=== PATIENT | female | born 1990 | race Caucasian/White ===

== ENCOUNTER 2017-12-05 06:04 | Day surgery (SDC) | payer OTHER ==
[2017-12-05] VITALS (11 sets, daily range): BP systolic 104–122; BP diastolic 52–65
[~2017-12-05] VITALS: Ht 157.5 cm; Wt 80.7 kg
[~2017-12-05 06:04] MED LIST: NORCO 10-325 T1 EACH ORAL; ceFAZolin 1gm in D5W 55ml IVPB SCH; celeBREX 200mg Cap **SURGERY PATIENTS ONLY ORAL SCH; oxyCONTIN 20mg tab ORAL SCH
--- NOTE | 2017-12-05 07:46 | Pre-Procedure Note/Attestation ---
Pre-Procedure Note/Attestation Complete Prior to Procedure Planned Procedure: left Procedure Narrative: arthroscopy, possible acl recontruction, possible menisectomy Indications for Procedure Pre-Operative Diagnosis: left knee acl tear Attestation I attest that I discussed the nature of the procedure; its benefits; risks and complications; and alternatives (and the risks and benefits of such alternatives ), prior to the procedure, with the patient (or the patient's legal loan representative). I attest that, if there was a reasonable possibility of needing a blood transfusion, the patient (or the patient's legal loan representative) was given the [facility] standardized written summary, pursuant to the [place] Blood Safety Act ([place] Health and Safety Code # 1645, as amended). I attest that I re-evaluated the patient just prior to the surgery and that there has been no change in the patient's H&P, except as documented below: DANIEL GIL Dec 05, 2017 07:46
--- NOTE | 2017-12-05 07:47 | Operative Note - PDOC ---
Operative Note Operative Note Pre-op Diagnosis: left knee acl tear Procedure: see op report Post-op Diagnosis: same as pre-op plus Operative Findings: consistent w/pre-op dx studies Anesthesia: regional Specimen: none Complications: none Condition: stable Estimated Blood Loss: none Implant(s) used?: Yes DANIEL GIL Dec 05, 2017 07:47
[2017-12-05] MEDS ORDERED: EPINEPHrine 1mg/1ml Amp ONE ×3 (10:07→11:23)
[2017-12-05] MEDS ORDERED: Lidocaine 1% 10mg/ml/Epi 0.005mg/ml 30ml vial INJ ONE (10:07)
[2017-12-05] MEDS ORDERED: Bupivacaine 0.25% Inj 30ml INJ ONE ×2 (10:07→10:16)
[2017-12-05] MEDS ORDERED: Duramorph PF 5mg/10ml amp ONE (10:15)
[2017-12-05] MEDS ORDERED: Kenalog-40 1ml Vial ONE (10:16)
[2017-12-05] MEDS ORDERED: Ketorolac 30mg Inj ONE (10:16)
[2017-12-05] MEDS ORDERED: LR 1000ml 1,000 ML IVLG SCH (10:53)
--- NOTE | 2017-12-05 10:54 | Anethesia Preoperative Eval ---
Anesthesia Pre-op PMH/ROS General Date of Evaluation: Dec 05, 2017 Time of Evaluation: 13:23 Anesthesiologist: Yasmany ASA Score: ASA 2 Mallampati Score Class I : Soft palate, uvula, fauces, pillars visible Class II: Soft palate, uvula, fauces visible Class III: Soft palate, base of uvula visible Class IV: Only hard plate visible Mallampati Classification: Class I Surgeon: Burton Diagnosis: L Knee Pain Surgical Procedure: L Knee ACL Repair Anesthesia History: none Family History: no anesthesia problems Allergies: Coded Allergies: AMOXICILLIN (Verified Allergy, Intermediate, rash, 12/04/17) CEFADROXIL (Verified Allergy, Intermediate, rash, 12/04/17) CLAVULANIC ACID (Verified Allergy, Intermediate, rash, 12/04/17) OXYBUTYNIN (Verified Allergy, Intermediate, hives, 12/04/17) SULFAMETHOXAZOLE (Verified Allergy, Intermediate, hives, 12/04/17) TRIMETHOPRIM (Verified Allergy, Intermediate, hives, 12/04/17) Medications: see eMAR Past Medical History Other: obesity - BMI 34 Anesthesia Pre-op Phys. Exam Physician Exam Last Vital Signs Date Time Temp Pulse Resp B/P (MAP) Pulse Ox O2 Delivery O2 Flow Rate FiO2 12/05/17 09:11 97.2 71 18 104/62 100 Room Air 97.2 Constitutional: NAD Neurologic: CN 2-12 intact Cardiovascular: RRR Respiratory: CTA Gastrointestinal: S/NT/ND Airway Exam Mallampati Score: Class I MO: full ROM: full Teeth: intact Anesthesia Pre-op A/P Labs Urine Test Test 12/05/17 06:15 Urine HCG, Qualitative Negative (NEGATIVE) Risk Assessment & Plan Assessment: ASA 2 Plan: GA, Femoral/Adductor Block, BIS Status Change Before Surgery: No Pre-Antibiotics Dru grams Ancef IV Given Within 1 Hr of Incision: Yes Time Given: 13:31 Chaka Faustin MD Dec 05, 2017 10:54
[2017-12-05] MEDS ORDERED: Acetaminophen (Non formulary) 100 ML IV ONE (11:00)
[2017-12-05] MEDS ORDERED: LORazepam Inj 2mg/ml 1ml IV PRN (11:00)
[2017-12-05] MEDS ORDERED: fentaNYL 100 mcg/2 mL IV PRN (11:00)
[2017-12-05] MEDS ORDERED: Labetalol 5mg/ml 20ml vial IV PRN (11:00)
[2017-12-05] MEDS ORDERED: Ketorolac 30mg Inj IV PRN ×2 (11:00)
[2017-12-05] MEDS ORDERED: HYDROcodone/Acetamin 7.5/325 tab ORAL PRN (11:00)
[2017-12-05] MEDS ORDERED: oxyCODONE HCL/Acetaminophen 5/325mg ORAL PRN (11:00)
[2017-12-05] MEDS ORDERED: Midazolam 2mg/2ml Inj IVP PRN (11:00)
[2017-12-05] MEDS ORDERED: DiphenhydrAMINE 50mg/ml Inj IVP PRN (11:00)
[2017-12-05] MEDS ORDERED: Atropine Inj 1mg/10ml Syr IV PRN (11:00)
[2017-12-05] MEDS ORDERED: Hydromorphone 0.5mg/0.5ml inj IVP PRN (11:00)
[2017-12-05] MEDS ORDERED: Norco 5mg/325mg tab ORAL PRN ×2 (11:00→19:01)
--- NOTE | 2017-12-05 11:16 | Immediate Post-Op Evaluation ---
Immediate Post-Op Evalulation Immediate Post-Op Evalulation Procedure: L Knee Acl Repair Date of Evaluation: Dec 05, 2017 Time of Evaluation: 15:07 IV Fluids: 1600 LR Blood Products: 0 Estimated Blood Loss: 20 Urinary Output: 0 Blood Pressure Systolic: 111 Blood Pressure Diastolic: 44 Pulse Rate: 86 Respiratory Rate: 16 O2 Sat by Pulse Oximetry: 100 Temperature (Fahrenheit): 97.2 Pain Score (1-10): 3 Nausea: No Vomiting: No Complications 0 Patient Status: awake, reacts, patent, extubated, none Hydration Status: adequate Dru Grams Ancef IV Given Within 1 Hr of Incision: Yes Time Given: 13:31 Chaka Faustin MD Dec 05, 2017 11:16
--- NOTE | 2017-12-05 11:17 | 48 Hour Post Anesthesia Eval ---
Post Anesthesia Evaluation Procedure: L Knee Acl Repair Date of Evaluation: Dec 05, 2017 Time of Evaluation: 17:21 Blood Pressure Systolic: 112 0: 67 Pulse Rate: 74 Respiratory Rate: 18 Temperature (Fahrenheit): 97.6 O2 Sat by Pulse Oximetry: 100 Airway: patent Nausea: No Vomiting: No Pain Intensity: 3 Hydration Status: adequate Cardiopulmonary Status: Stable Mental Status/LOC: patient returned to baseline Follow-up Care/Observations: 0 Post-Anesthesia Complications: 0 Follow-up care needed: ready to discharge Chaka Faustin MD Dec 05, 2017 11:17
[2017-12-05] MEDS ORDERED: fentaNYL 100 mcg/2 mL IV ONE (11:24)
[2017-12-05] MEDS ORDERED: Lidocaine 1% MPF 10mg/ml 5ml ONE (11:25)
[2017-12-05] MEDS ORDERED: Dexamethasone 4mg/ml vial ONE (11:25)
[2017-12-05] MEDS ORDERED: Propofol 200mg/20ml IV ONE (11:25)
[2017-12-05] MEDS ORDERED: Sodium Chloride 10ml vial INJ ONE (11:25)
[2017-12-05] MEDS ORDERED: Ropivacaine 5mg/ml Vial 30ml INJ ONE (11:28)
[2017-12-05] MEDS ORDERED: Sterile Water Irrig 1000ml IRRIG ONE (13:30)
[2017-12-05] MEDS ORDERED: NS Irrig 4000ml IRRIG ONE (13:30)
[2017-12-05] MEDS ORDERED: LR 1000ml ONE (13:30)
[2017-12-05] MEDS ORDERED: NS Irrig 1000ml ONE (13:30)
--- NOTE | 2017-12-05 18:45 | Operative Note - Dictated ---
DATE OF OPERATION: 12/05/2017 NOTE: INCOMPLETE DICTATION PREOPERATIVE DIAGNOSIS: Left knee internal derangement secondary to possible anterior cruciate ligament sprain. POSTOPERATIVE DIAGNOSIS: Left knee internal derangement secondary to possible anterior cruciate ligament sprain. PROCEDURE: 1. Left knee diagnostic arthroscopy 2. Synovectomy of the lateral, medial, and patellofemoral compartment. SURGEON: Rod Burton M.D. ANESTHESIA: MAC. INDICATION FOR PROCEDURE: The patient is a pleasant female, who sustained a mechanical fall. She had significant pain and instability in her knee. She had an MRI, which showed some thickening and possible sprain of the ACL. Given that she had instability, it was felt that assessment intraoperatively for the laxity of the ACL would be appropriate so as to rule out any other internal derangement of the knee that could be causing her symptoms. Based on the chronic findings of the ACL was significantly laxed, formal surgery would be unreasonable. Additionally, any meniscal chondral damage would be addressed also at the time of surgery. Risks, limitations, expectations, and complications of procedure were discussed in detail including continued pain, need for future surgery, risk of anesthesia, medical complications, DVT, PE, and mortality risks. All questions were addressed. DESCRIPTION OF PROCEDURE: After informed consent was obtained, the patient was brought to the operative room and the patient was placed under monitored anesthesia control. Tourniquet was applied to the left proximal thigh. Left leg was prepped and draped in a sterile manner. Time-out was performed. The intra-articular injection was injected. Rod Burton M.D. DR: ASHWIN JOB#: [id number] CC: JERRICA
[2017-12-05] MEDS ORDERED: D5 1/2NS 1,000 ML IV SCH (19:01)
[2017-12-05] MEDS ORDERED: Tylenol #3 tab (300mg/30mg) ORAL PRN (19:01)
--- NOTE | 2017-12-06 03:30 | Operative Note - Dictated ---
DATE OF OPERATION: 12/05/2017 NOTE: POOR AUDIO PREOPERATIVE DIAGNOSES: 1. Left knee internal derangement. 2. Left knee anterior cruciate ligament sprain. POSTOPERATIVE DIAGNOSES: 1. Left knee internal derangement. 2. Left knee anterior cruciate ligament sprain. PROCEDURE: 1. Left knee diagnostic arthroscopy. 2. Left knee arthroscopic medial and lateral patellofemoral synovectomy. SURGEON: Rod Burton M.D. ANESTHESIA: MAC with local. INDICATION FOR PROCEDURE: The patient is a pleasant female who had significant pain along the left knee she failed conservative treatment. MRI showed some thickening, possible tearing of the ACL. She exploration with the risks, limitations, expectations, and complications of procedure were discussed in detail. We discussed that based on intraoperative findings, the ACL was laxed and completely torn and formal reconstruction with tibialis anterior allograft would be reasonable. Additionally, any other potential source of her continued symptoms would also be addressed including the meniscus and chondral surfaces. Risks, limitations, expectations, and complications of procedure were discussed in detail. All questions were addressed. DESCRIPTION OF PROCEDURE: Informed consent was obtained. The patient was brought to the operative room. The patient was placed under monitored anesthesia control. Tourniquet was applied to left proximal thigh. Left leg was prepped and draped in a sterile manner. Time-out was performed. A 20 mL Marcaine plain injected into the left knee. Portal sites were injected with 1% lidocaine with epinephrine . The Esmarch was used to exsanguinate the extremity. Inferolateral stab incision was then made. Trocar was introduced into the knee joint. There was hypertrophic synovial tissue in the patellofemoral compartment. No significant chondral damage. Medial compartment was entered and there was no significant chondral or meniscal injury. The intercondylar notch was entered and there was thickening along the ACL consistent with the sprain/tear. Synovectomy of the hypertrophic ligamentum mucosum and soft tissue down to what appeared to be the ACL. The ACL was probed in its entirety and seemed reasonably intact, although there was slight laxity and it was felt that reason. Once the synovectomy in the intercondylar notch and hypertrophic synovial tissue and intercondylar notch was debrided, the knee was taken through range of motion. No impingement of the soft tissue on the ACL with flexion and extension. Lateral compartment was entered and free from the meniscal chondral damage. Once this was done, the camera was placed in the patellofemoral compartment. Synovectomy was completed. Once that was done, the instruments were removed. Portal sites were closed using 3-0 Monocryl sutures. Steri-Strips and a sterile dressing were applied. The patient was awoken and taken to recovery room with stable vital signs. ESTIMATED BLOOD LOSS: None. COMPLICATIONS: None. SPECIMENS: None. IMPLANTS: None. Rod Burton M.D. DR: BHARATI JOB#: [id number] CC:
== END 2017-12-05 16:46 | disposition home or self-care (01) ==
LOC: SUR 06:04
DX: S83.512A Sprain of anterior cruciate ligament of left knee, initial encounter (principal); Z88.8 Allergy status to other drugs, medicaments and biological substances; X58.XXXA Exposure to other specified factors, initial encounter
CPT/HCPCS: 29876; 81025; J0171; J0690; J1100; J2250; J2405; J2704; J2795; J3010; J3490

== ENCOUNTER 2018-10-14 06:44 | Inpatient (IN) | payer OTHER ==
[2018-10-14] VITALS (11 sets, daily range): BP systolic 102–134; BP diastolic 61–85
[~2018-10-14] VITALS: Ht 157.5 cm; Wt 81.6 kg
[~2018-10-14 06:44] MED LIST changes: -ceFAZolin 1gm in D5W 55ml IVPB SCH; -celeBREX 200mg Cap **SURGERY PATIENTS ONLY ORAL SCH; -oxyCONTIN 20mg tab ORAL SCH
[2018-10-14] MEDS ORDERED: Dexamethasone 20mg/5ml IVP ONE (07:00)
[2018-10-14 07:28] LABS: APPEARANCE,URINE CLEAR; BILIRUBIN, URINE NEGATIVE (NEGATIVE); COLOR,URINE PALE YELLOW; GLUCOSE, URINE (UA) NEGATIVE (NEGATIVE); KETONES,URINE NEGATIVE (NEGATIVE); LEUKOCYTE ESTERASE ,URINE 1+ (NEGATIVE); NITRITE,URINE NEGATIVE (NEGATIVE); PH,URINE 6 (4.5-8.0); PROTEIN,URINE NEGATIVE (NEGATIVE); UROBILINOGEN,URINE NORMAL MG/DL (0.0-1.0)
[2018-10-14] MEDS ORDERED: LR 1000ml 1,000 ML IVLG SCH (09:18)
--- NOTE | 2018-10-14 09:22 | Anethesia Preoperative Eval ---
Anesthesia Pre-op PMH/ROS General Date of Evaluation: Oct 14, 2018 Time of Evaluation: 10:41 Anesthesiologist: Roxie ASA Score: ASA 2 Mallampati Score Class I : Soft palate, uvula, fauces, pillars visible Class II: Soft palate, uvula, fauces visible Class III: Soft palate, base of uvula visible Class IV: Only hard plate visible Mallampati Classification: Class I Surgeon: Hipolito Diagnosis: Neck Pain Surgical Procedure: ACDF C5-6, C6-7 Anesthesia History: none Family History: no anesthesia problems Allergies: Coded Allergies: AMOXICILLIN (Verified Allergy, Intermediate, rash, 12/04/17) CEFADROXIL (Verified Allergy, Intermediate, rash, 12/04/17) CLAVULANIC ACID (Verified Allergy, Intermediate, rash, 12/04/17) OXYBUTYNIN (Verified Allergy, Intermediate, 10/14/18) RASH/TACHYCARDIA SULFAMETHOXAZOLE (Verified Allergy, Intermediate, hives, 12/04/17) TRIMETHOPRIM (Verified Allergy, Intermediate, hives, 12/04/17) Medications: see eMAR Patient NPO?: Yes NPO Date: Oct 13, 2018 NPO Time: 2339 Past Medical History Other: obesity - BMI 34 PSxH Narrative: R Knee ACL Repair Anesthesia Pre-op Phys. Exam Physician Exam Last Vital Signs Date Time Temp Pulse Resp B/P (MAP) Pulse Ox O2 Delivery O2 Flow Rate FiO2 10/14/18 07:54 Room Air 10/14/18 07:44 97.9 76 18 102/65 (77) 96 Constitutional: NAD Neurologic: CN 2-12 intact Cardiovascular: RRR Respiratory: CTA Gastrointestinal: S/NT/ND Airway Exam Mallampati Score: Class II MO: full ROM: limited Teeth: intact Anesthesia Pre-op A/P Labs Urine Test Test 10/14/18 07:00 Urine HCG, Qualitative Negative (NEGATIVE) Risk Assessment & Plan Assessment: ASA 2 Plan: GA, SED, GlideScope Go Status Change Before Surgery: No Pre-Antibiotics Dru Grams Ancef IV Given Within 1 Hr of Incision: Yes Time Given: 11:01 Chaka Faustin MD Oct 14, 2018 09:22
--- NOTE | 2018-10-14 09:24 | Immediate Post-Op Evaluation ---
Immediate Post-Op Evalulation Immediate Post-Op Evalulation Procedure: ACDF C5-6, C6-7 Date of Evaluation: Oct 14, 2018 Time of Evaluation: 13:34 IV Fluids: 700 LR Blood Products: 0 Estimated Blood Loss: 50 Urinary Output: 0 Blood Pressure Systolic: 120 Blood Pressure Diastolic: 85 Pulse Rate: 89 Respiratory Rate: 16 O2 Sat by Pulse Oximetry: 100 Temperature (Fahrenheit): 97.1 Pain Score (1-10): 2 Nausea: No Vomiting: No Complications 0 Patient Status: awake, reacts, patent, extubated, none Hydration Status: adequate Dru Grams Ancef IV Given Within 1 Hr of Incision: Yes Time Given: 11:01 Chaka Faustin MD Oct 14, 2018 09:24
[2018-10-14] MEDS ORDERED: Lidocaine 1% Plain 30 ml INJ ONE ×3 (09:29→12:16)
[2018-10-14] MEDS ORDERED: LORazepam Inj 2mg/ml 1ml IV PRN (09:30)
[2018-10-14] MEDS ORDERED: Norco 5mg/325mg tab ORAL PRN (09:30)
[2018-10-14] MEDS ORDERED: HYDROcodone/Acetamin 7.5/325 tab ORAL PRN (09:30)
[2018-10-14] MEDS ORDERED: Acetaminophen (Non formulary) 100 ML IV ONE (09:30)
[2018-10-14] MEDS ORDERED: DiphenhydrAMINE 50mg/ml Inj IVP PRN (09:30)
[2018-10-14] MEDS ORDERED: Metoclopramide 10mg/2ml Inj IVP PRN (09:30)
[2018-10-14] MEDS ORDERED: Hydromorphone 0.5mg/0.5ml inj IVP PRN (09:30)
[2018-10-14] MEDS ORDERED: oxyCODONE HCL/Acetaminophen 5/325mg ORAL PRN (09:30)
[2018-10-14] MEDS ORDERED: Atropine Sulfate 0.4mg/ml inj IVP PRN (09:30)
[2018-10-14] MEDS ORDERED: Ketorolac 30mg Inj IV PRN ×2 (09:30)
[2018-10-14] MEDS ORDERED: Meperidine 50mg/ml Inj(FOR RIGORS ONLY) IVP PRN (09:30)
[2018-10-14] MEDS ORDERED: Midazolam 2mg/2ml Inj IVP PRN (09:30)
[2018-10-14] MEDS ORDERED: fentaNYL 100 mcg/2 mL IV PRN (09:30)
[2018-10-14] MEDS ORDERED: Sodium Chloride 10ml vial INJ ONE (09:36)
[2018-10-14] MEDS ORDERED: Dexamethasone 4mg/ml vial ONE (09:36)
[2018-10-14] MEDS ORDERED: Lidocaine 1% MPF 10mg/ml 5ml ONE (09:36)
[2018-10-14] MEDS ORDERED: fentaNYL 100 mcg/2 mL IV ONE ×3 (09:37→12:45)
[2018-10-14] MEDS ORDERED: Thrombin 5000 units TOPIC ONE (09:48)
[2018-10-14] MEDS ORDERED: Gelfoam Size TOPIC ONE (09:48)
[2018-10-14] MEDS ORDERED: Vancomycin 1gm vial IVPB ONE (09:48)
[2018-10-14] MEDS ORDERED: Bacitracin 50000 Units Vial ONE (09:49)
[2018-10-14] MEDS ORDERED: Bupivacaine 0.5% Inj 30 ml vial INJ ONE (09:49)
--- NOTE | 2018-10-14 10:03 | Pre-Procedure Note/Attestation ---
Pre-Procedure Note/Attestation Complete Prior to Procedure Planned Procedure: not applicable Procedure Narrative: ACDF C5-C6, C6-C7 Anterior Plate Indications for Procedure Pre-Operative Diagnosis: Cervical Trauma HNP radiculopathy, neurologic deficit Attestation I attest that I discussed the nature of the procedure; its benefits; risks and complications; and alternatives (and the risks and benefits of such alternatives ), prior to the procedure, with the patient (or the patient's legal outbound sales representative). I attest that, if there was a reasonable possibility of needing a blood transfusion, the patient (or the patient's legal outbound sales representative) was given the [facility] standardized written summary, pursuant to the [place] Blood Safety Act ([place] Health and Safety Code # 1645, as amended). I attest that I re-evaluated the patient just prior to the surgery and that there has been no change in the patient's H&P, except as documented below: Royal Mcmillan MD Oct 14, 2018 10:03
[2018-10-14] MEDS ORDERED: Zemuron 50mg/5ml Inj IV ONE (10:24)
[2018-10-14] MEDS ORDERED: LR 1000ml ONE (11:00)
[2018-10-14] MEDS ORDERED: Sterile Water For Irrig 2000ml IRRIG ONE (11:00)
[2018-10-14] MEDS ORDERED: Labetalol 5mg/ml 20ml vial IV ONE (11:00)
[2018-10-14] MEDS ORDERED: NS Irrig 1000ml ONE (11:00)
[2018-10-14] MEDS ORDERED: Propofol 1,000mg/ 100ml btl IV ONE (11:00)
[2018-10-14] MEDS ORDERED: Neostigmine 1mg/ml 10ml Inj ONE (12:27)
[2018-10-14] MEDS ORDERED: Glycopyrrolate 0.2mg/ml 1ml Vial ONE (12:27)
[2018-10-14] MEDS ORDERED: ePHEDrine 50mg/ml Inj ONE (12:53)
[2018-10-14] MEDS ORDERED: Chloraseptic Spray 20mL Bottle ORAL PRN ×2 (13:00→16:00)
[2018-10-14] MEDS ORDERED: HYDROcodone/Acetamin 10/325 tab ORAL PRN ×4 (13:00→14:30)
[2018-10-14] MEDS ORDERED: D5 1/2NS 1,000 ML IV SCH (13:11)
--- NOTE | 2018-10-14 13:11 | Brief Operative Note ---
Immediate Post Operative Note Operative Note Pre-op Diagnosis: Cervical Trauma HNP radiculopathy, neurologic deficit Procedure: ACDF C5-C6, C6-C7 Plate Xray Microscope Osteopromotive material SSEP Post-op Diagnosis: same as pre-op Findings: consistent w/pre-op dx studies Surgeon: Hipolito CASPER Additional Surgeons: Daniel CASPER Anesthesiologist: Roxie CASPER Anesthesia: general Specimen: yes Complications: none Condition: stable Fluids: anesthesia Estimated Blood Loss: minimal Drains: none Implant(s) used?: Yes Royal Mcmillan MD Oct 14, 2018 13:11
[2018-10-14] MEDS ORDERED: HydrOXYzine tab 25mg tab ORAL PRN (13:15)
[2018-10-14] MEDS ORDERED: Naloxone 0.4mg/ml Inj IVP PRN (13:15)
[2018-10-14] MEDS ORDERED: Chloraseptic Spray 20mL Bottle ORAL ONE (14:27)
[2018-10-14] MEDS ORDERED: HYDROmorphone 1mg/ml Carpuject SUBQ PRN ×2 (14:30→15:15)
[2018-10-14] MEDS ORDERED: LORazepam 0.5mg tab ORAL PRN (14:45)
--- NOTE | 2018-10-14 14:50 | NUR ---
CHARGE NURSE NOTES: RECEIVED PT AWAKE, ALERT X4, W/ MOM AT BEDSIDE. DR MARTINES SAW THE PATIENT W/ ORDERS GIVEN-NOTED. CLEAR LIQUIDS PROVIDED-TOLERATED.NO VOMITING NOTED. IN PAIN BUT MEDS GIVEN. VS MONITORED.
[2018-10-14] MEDS ORDERED: HYDROmorphone 1mg/ml Carpuject SUBQ SCH (15:08)
[2018-10-14] MEDS ORDERED: ceFAZolin sod 1 GM in D5W 55 ML IV SCH (16:00)
--- NOTE | 2018-10-14 16:09 | NUR ---
CASE MANAGEMENT: INITIAL REVIEW 28 YO F PRESENTED TO [facility] CC: NECK PAIN PMHx: OBESITY. RIGHT KNEE ACL REPAIR SI:CERVICAL TRAUMA T 97.9 HR 76 RR 18 B/P 102/65 SATS 96% ON RA HCG (-) IS: PEPCID PO BID NS BOLUS X1 CEFAZOLIN IV Q8H FENTANYL IV Q10M PRN DILAUDID IV Q15 PRN PATIENT ADMITTED TO MED/SURG 10/14/2018 @ 1546 DCP: PATIENT TO BE DISCHARGED TO HOME ONCE MEDICALLY CLEARED. PLAN OF CARE: POST OP CARE PAIN MANAGEMENT Addendum: 10/14/18 at 1738 by Ada Rojas CM INTERQUAL MET
[2018-10-14] MEDS ORDERED: SOMA350 MG PO (16:35)
[2018-10-14] MEDS ORDERED: CHLORASEPTIC1 SPRAY ORAL (16:36)
--- NOTE | 2018-10-14 17:30 | NUR ---
CHARGE NURSE NOTES: pt hand-off to Ken Soto RN for continuity of care. pt pain decreased & voided to the bathroom.
--- NOTE | 2018-10-14 19:53 | NUR ---
Report given to Bob ATKINSON.
--- NOTE | 2018-10-14 19:55 | NUR ---
NURSE NOTES: Patient in stable condition. IV heplock RH discontinued. Alert, oriented Arm band removed, VS stable. Discharge papers and patient belongings sheet signed. Left with family member, via wheelchair to home.
[2018-10-14] MEDS ORDERED: Tubing IV Secondary IV ONE (20:39)
[2018-10-14] MEDS ORDERED: Tamsulosin 0.4mg cap ORAL SCH (21:00)
--- NOTE | 2018-10-14 21:02 | Operative Note - Dictated ---
DATE OF OPERATION: 10/14/2018 SURGEON: Royal Mcmillan, Ph.D, M.D. WARD SECRETARY SURGEON: Alfredo Sanchez M.D. ANESTHESIOLOGIST: Chaka Faustin M.D. ANESTHESIA: General with intubation. ESTIMATED BLOOD LOSS: Minimal. PREOPERATIVE DIAGNOSIS: Posttraumatic cervical radiculopathy, neurologic deficit. POSTOPERATIVE DIAGNOSIS: Posttraumatic cervical radiculopathy, neurologic deficit. OPERATIVE PROCEDURE: 1. ACDF C5-C6 and C6-C7. 2. Placement of osteopromotive material with fusion, C5-C6, C6-C7. 3. Anterior internal plate fixation, bilateral C5, C6, C7. 4. Intraoperative fluoroscopy interpreted by surgeons. 5. SSEP monitoring. 6. High-powered microscopic dissection. POSTOPERATIVE CONDITION: Good/stable. COMPLICATIONS: None. SPECIMEN: Disc fragments to Pathology. PROCEDURE IN DETAIL: The patient was brought to the operating room and placed in the supine position, general anesthesia intubation was induced. After appropriate positioning, a cross-table fluoroscopic image was obtained with markers on the contralateral aspect of the cervical spine-not penetrating the dermis/epidermis with determination of incision level placement. Left side of the neck was appropriately marked for incision level placement followed with sterile prep and draped free in usual sterile fashion. A transverse incision left at the appropriate interval was sharply placed in the dermis and epidermis. Electrocautery dissection was carried to the subcutaneous tissue to the level of the platysmas muscle. It was identified, isolated and transected in line with the incision. Blunt dissection was carried medial to the sternocleidomastoid left through the deep cervical and pretracheal fascia to the midline between the right and left longus colli muscles. A spinal needle bent at 90 degree angle so as to avoid penetration greater than 3 mm was placed in the disk space under direct observation high-power magnification. A cross-table fluoroscopic image was obtained interpreted by surgeons to determination of levels. Level was marked. Needle removed. Retractors placed. C6-C7: Annulotomy followed diskectomy to the posterior longitudinal ligament was performed. Midas Jeremy bur denuded of cartilaginous endplates to bleeding subchondral bone without broaching of the subchondral bone inferior C6, superior C7. Appropriately dimensioned titanium graft lordotic containing osteopromotive material was tamped into position, excellent alignment. This was determined with appropriate trials prior. The patient remained stable at all times. Retractors were placed to the C5-C6 interval. Annulotomy followed diskectomy followed with endplate denuding with Midas Jeremy bur dissection, high-power magnification was undertaken. The patient is stable at all times. Trials utilized for determination of the correct graft replacement. Titanium lordotic cage with osteopromotive material was tamped into excellent position. AP and lateral fluoroscopic images were obtained in sterile conditions demonstrating correct levels and placement. Traction on the neck (10 pounds) was removed. Anterior internal plate fixation was undertaken in compressive fashion with bilateral screws C5, C6 and C7 locked into position. AP and lateral fluoroscopic images obtained recorded demonstrating excellent alignment positioning. Wound was copiously irrigated with antibiotic-containing saline. Exploration revealed no obvious excoriation or laceration of vital structures. FloSeal applied. Reapproximation of the platysmas level followed with subcuticular reapproximation of dermis and epidermis. Transverse surgical strips with sterile bandage maintained in place with tape. The patient was awakened and extubated in the operating room and transported to postop recovery in good and stable condition. Royal Mcmillan M.D. DR: GENEVIEVE JOB#: [id number] CC:
--- NOTE | 2018-10-14 21:32 | Consultation ---
DATE OF CONSULTATION: 10/14/2018 CONSULTING PHYSICIAN: Fede Asif M.D. REFERRING PHYSICIAN: Royal Stanley M.D. REASON FOR CONSULTATION: Acute pain consult. DEAR DR. ROYAL STANLEY: Thank you kindly for consulting me to evaluate and render an opinion as to how to proceed in the management of the patient's acute postoperative cervical spine pain after multiple level cervical spine instrumentation surgery today. The patient is a 28-year-old woman, who injured her neck after a fall injury. She failed conservative treatment and required multiple level cervical spine instrumentation surgery. You consulted me to help with her pain control postoperatively. I saw the patient at the bedside. I discussed the case in detail with yourself, Dr. Stanley along with the recovery room nurse, CHINA Miller, and the floor nurse RN, Blanca. I spoke with the hospital pharmacist, Gustavo at [facility], where I reviewed multiple records from the patient's medical chart including records from the surgery suite and the hospital and pharmacy departments. PAST MEDICAL HISTORY: 1. Acute postoperative cervical spine pain, status post multiple level cervical spine instrumentation surgery by Dr. Royal Stanley, October 2017. 2. Fall injury. 3. Mild obesity. PAST SURGICAL HISTORY: Distant knee surgery. MEDICATIONS AT HOME: [place] 10 mg, 4 times a day. ALLERGIES: Multiple allergies include rash from Augmentin, cefaclor, clavulanic acid, and oxybutynin. Further medication allergies include Bactrim and Ditropan extended release XL, which causes tachycardia. FAMILY HISTORY: Noncontributory. SOCIAL HISTORY: The patient denies tobacco, alcohol, or illicit drug use. REVIEW OF SYSTEMS: Per Dr. Wray. PHYSICAL EXAMINATION: VITAL SIGNS: Age 27. Height 5 feet 2 inches. Weight is 82 kg. Body mass index of 33. Pulse 82, respirations 15, blood pressure 123/71, and oxygen saturation 100% on supplemental oxygen. HEENT: Shows cervical spine wound dressing, clean and dry. Significant discomfort with range of motion. Pain with swallowing, but phonation and breathing appeared within normal limits. No Michael palsy. No Ghazal syndrome. CHEST: Clear to auscultation. BREASTS: Deferred. HEART: Regular rate and rhythm. ABDOMEN: Mildly obese. Positive bowel sounds. GENITOURINARY: Deferred. NEUROLOGIC: Detailed neurologic exam per Dr. Stanley. DIAGNOSTIC TESTING: Shows MRI of cervical spine dated 05/18/2018. Impression, multilevel disk bulges identified greatest at C5-C6. A 12-lead EKG shows heart rate 58. No evidence for acute chronic ischemia. HIV testing negative. LABORATORY STUDIES: From October 02, 2018 shows glucose 87, BUN 10, creatinine 0.7, sodium 138, potassium 3.8, chloride 107, bicarb 20, and calcium 8.9. Total protein 7.2. Albumin 4.5. Total bilirubin 0.6. Alkaline phosphatase 46. AST 10 and ALT 9. Hemoglobin A1c is 4.6. PTT is 31 and INR 1.0. White count 9, hematocrit 37, and platelets 241,000. Urinalysis shows few bacteria with 1+ leukocyte esterase and negative for nitrite. MRSA screen is negative for nasal screening. Urine culture negative. IMPRESSION: 1. Acute postoperative cervical spine pain, status post multiple level cervical spine instrumentation surgery by Dr. Royal Stanley, October 2017. 2. Fall injury. 3. Mild obesity. TREATMENT RECOMMENDATIONS: The patient complains of significant pain after her multilevel cervical spine instrumentation surgery at C5-C6 and C6-C7. She uses considerable doses of hydrocodone preoperatively for her severe neck pain due to her tolerance and likely tachyphylaxis to opioid narcotics. I have devised the following potent regimen of analgesics. I have started with Dilaudid 1 mg subcutaneously every three hours p.r.n. for severe pain. I have ordered two different doses of [place] starting with 10 mg/325 mg tablets. I will start with one tablet orally every three hours p.r.n. for fever or mild pain. I doubled the dose of 2 tablets every 4 hours p.r.n. for moderate pain. I have added Soma 350 mg orally every 8 hours in case of any muscle spasm symptoms. I will add a low dose of Ativan 0.5 mg orally every 8 hours in case of anxiety or panic attacks. In case of any headache complaints, I have ordered Fioricet tablets one tablet orally every 8 hours p.r.n. The patient does have a history of multiple drug allergies including rashes. I have ordered two different anti-itch agents, starting with Benadryl 25 mg orally every 6 hours as a first-line agent, followed by Atarax 20 mg orally every 6 hours p.r.n. as a second-line agent. I will empirically place the patient on Pepcid 20 mg b.i.d. All the p.r.n. dose of Mylanta 30 mL q.6 h. in case of any GERD symptom exacerbations. I have asked nursing to place Chloraseptic spray at the bedside to help with topical sore throat complaints. I have ordered incentive spirometer to encourage good pulmonary toilet. The patient to ambulate for DVT prophylaxis. The patient already has a supply of [place] and Soma for home usage. Fede Asif M.D. DR: BUBBA JOB#: [id number] CC:
[2018-10-15 08:32] VITALS: BP 124/57
--- NOTE | 2018-10-15 08:32 | 48 Hour Post Anesthesia Eval ---
Post Anesthesia Evaluation Procedure: ACDF C5-6, C6-7 Date of Evaluation: Oct 15, 2018 Time of Evaluation: 08:31 Blood Pressure Systolic: 124 0: 57 Pulse Rate: 68 Respiratory Rate: 20 Temperature (Fahrenheit): 97.6 O2 Sat by Pulse Oximetry: 98 Airway: patent Nausea: No Vomiting: No Pain Intensity: 2 Hydration Status: adequate Cardiopulmonary Status: stable Mental Status/LOC: patient returned to baseline Follow-up Care/Observations: n/a Post-Anesthesia Complications: none Follow-up care needed: ready to discharge Chris Payne MD Oct 15, 2018 08:32
--- NOTE | 2018-10-15 09:57 | Discharge Summary ---
Discharge Summary Discharge Summary _ DATE OF ADMISSION: 10/14/2018 DATE OF DISCHARGE: 10/14/2018 DISCHARGED BY: Dr. Royal Mcmillan SKI BASE TRIMMER: Dr. Fede Asif BRIEF HOSPITAL COURSE: Patient is a 28-year-old female, who injured her neck after a fall injury. She failed conservative treatment and required multiple level cervical spine instrumentation surgery. She was admitted on 10/14/2018 and underwent ACDF C5- C6 and C6-C7. She tolerated procedure well. Surgery was uneventful. Post- operatively, patient was admitted for post-op care. She was placed on SCDs for DVT prophylaxis and was encouraged use of incentive spirometer. legal financial specialist was consulted. Patient was given pain management with subcutaneous Dilaudid and [place]. She was seen by PT. Diet was advanced. Incision was clean, dry and intact. Patient was ambulating well with good pain control and was tolerating diet. Patient was eventually cleared for discharge home. PREOPERATIVE DIAGNOSIS: Posttraumatic cervical radiculopathy, neurologic deficit. POSTOPERATIVE DIAGNOSIS: Posttraumatic cervical radiculopathy, neurologic deficit. OPERATIVE PROCEDURE: 1. ACDF C5-C6 and C6-C7. 2. Placement of osteopromotive material with fusion, C5-C6, C6-C7. 3. Anterior internal plate fixation, bilateral C5, C6, C7. 4. Intraoperative fluoroscopy interpreted by surgeons. 5. SSEP monitoring. 6. High-powered microscopic dissection. (Refer to Operative Report) DISCHARGE DISPOSITION: Patient was discharged home. DISCHARGE MEDICATIONS: Refer to Medication Reconciliation Sheet. DISCHARGE INSTRUCTIONS: Post-op instructions given. Follow-up in a week. I have been assigned to complete a DC summary on this account, I was not involved with the patient's management. Priya Radford NP Oct 15, 2018 09:57
== END 2018-10-14 20:40 | disposition home or self-care (01) | DRG 30 ==
LOC: SUR 06:44 → 3E 15:32
PROC: 0RB30ZZ Excision of Cervical Vertebral Disc, Open Approach (ICD-10-PCS; principal; 2018-10-14 09:00)
PROC: 0RG20A0 Fusion of 2 or more Cervical Vertebral Joints with Interbody Fusion Device, Anterior Approach, Anterior Column, Open Approach (ICD-10-PCS; principal; 2018-10-14 09:00)
DX: M54.12 Radiculopathy, cervical region (principal); W19.XXXS Unspecified fall, sequela; Z88.1 Allergy status to other antibiotic agents; Z88.8 Allergy status to other drugs, medicaments and biological substances; E66.9 Obesity, unspecified; Z68.32 Body mass index [BMI] 32.0-32.9, adult; G89.18 Other acute postprocedural pain
CPT/HCPCS: 36415; 72040; 76000; 81003; 81025; 86850; 86900; 86901; 87081; J2405; J2710